=== PATIENT | male | born 1935 | race Caucasian/White ===

== ENCOUNTER 2017-01-10 14:17 | Emergency (ER) | payer OTHER ==
[~2017-01-10] VITALS: Ht 185.4 cm; Wt 83.6 kg
[~2017-01-10 14:17] MED LIST: APIX5TAB PO; BUPR100T8 PO; CEPH-376 PO; CHOL200074 PO; FINA5TAB4 PO; FURO20TA3 PO; HYDR1TAB20 PO; LISI40TA PO; LOVA20TA2 PO; MELO15TA24 PO; META800T PO; MOME13HF2 INH; MULT-224 PO; TAMS0.4C2 PO; UBID200C7 PO
[2017-01-10] MEDS ORDERED: SODIUM CHLORIDE FLUSH 10ML SYR IVF ONE (15:00)
[2017-01-10 15:19] LABS: HEMATOCRIT 46.6 % (39.2-51.8); HEMOGLOBIN 15.5 g/dL (13.7-18.0); WHITE BLOOD COUNT 11.3 x10^3/uL (3.4-10)
[2017-01-10 15:30] LABS: ASPARTATE AMINO TRANSFERASE 16 U/L (15-37); BLOOD UREA NITROGEN 33 mg/dL (7-18)
[2017-01-10 17:14] VITALS: BP 110/70
[2017-01-10 20:16] LABS: IS PT STATUS REG ER OR PRE ER? YES
== END 2017-01-10 18:43 | disposition home or self-care (01) ==
LOC: ED 18:00
DX: I48.91 Unspecified atrial fibrillation (principal); J44.1 Chronic obstructive pulmonary disease with (acute) exacerbation; R55 Syncope and collapse; I10 Essential (primary) hypertension; F17.200 Nicotine dependence, unspecified, uncomplicated
CPT/HCPCS: 36415; 71010; 80053; 83880; 84484; 85025; 85610; 93005; 99285

== ENCOUNTER → 2018-05-28 | Outpatient (CLI) | payer MEDICARE ==
[~2018-05-28] MED LIST changes: -MULT-224 PO; +MULT-642 PO
== END | disposition home or self-care (01) ==
LOC: CFH 11:47
PROVIDERS: ATTEND Internal Medicine Cardiovascular Disease
DX: J44.0 Chronic obstructive pulmonary disease with (acute) lower respiratory infection (principal); E78.5 Hyperlipidemia, unspecified; I27.20 Pulmonary hypertension, unspecified; I48.0 Paroxysmal atrial fibrillation; I12.9 Hypertensive chronic kidney disease with stage 1 through stage 4 chronic kidney disease, or unspecified chronic kidney disease; N18.9 Chronic kidney disease, unspecified; I65.29 Occlusion and stenosis of unspecified carotid artery; R73.01 Impaired fasting glucose; F17.200 Nicotine dependence, unspecified, uncomplicated
CPT/HCPCS: 71046

== ENCOUNTER → 2020-02-18 | Outpatient (CLI) | payer MEDICARE | END | disposition home or self-care (01) | LOC: CFH 10:03 | PROVIDERS: ATTEND Internal Medicine | DX: J44.9 Chronic obstructive pulmonary disease, unspecified (principal); J18.9 Pneumonia, unspecified organism | CPT/HCPCS: 71046 ==

== ENCOUNTER 2020-03-28 06:35 | Emergency (ER) | payer MEDICARE ==
[~2020-03-28] VITALS: Ht 182.9 cm; Wt 70.0 kg
[~2020-03-28 06:35] MED LIST changes: -LISI40TA PO; +LISI40TA9 PO
--- NOTE | 2020-03-28 06:45 | NUR ---
Patient BIB amb from home c/o SOB post GLF yesterday. Patient states he had the second COVID vaccine yesterday and started feeling dizzy afterward. The dizziness caused him to fall and hit his right side low ribs. Patient is on home O2 at night 3lpm for COPD. RA sat for EMS was 80%. Patient sats >95% with 4lpm O2. EMS est IV and admin 100 Fentanyl and 4 Zofran. Patient is in NAD. Respirations even and unlabored.
--- NOTE | 2020-03-28 06:58 | NUR ---
Report given to SHERLEY Mcclain. Patient care transferred.
--- NOTE | 2020-03-28 07:10 | NUR ---
assumed care of pt. report from Susana LEPE pt here fo R rib pain after a fall at home last nocs and hitting the coffee table in his home. pt reports that he ususally wears O2 but was not wearing it when he fell. pt reports that he was able to get back up on his own pt posiioning for comfort. reports that he has some relief of pain after meds en route. PO ice chips given per OK from [facility]. no family at bedside. pt updated on POC
[2020-03-28 07:18] LABS: BASOPHILS % (AUTO) 0 % (0-1); EOSINOPHILS % (AUTO) 0 % (1-7); LYMPHOCYTES % (AUTO) 5 % (22-44); MEAN CORPUSCULAR HEMOGLOBIN 30.6 pg (27.5-34.5); MEAN CORPUSCULAR HGB CONC 32.5 g/dL (33.2-36.2); MEAN PLATELET VOLUME 8.1 fL (7.4-10.4); MONOCYTES % (AUTO) 7 % (2-9); NEUTROPHILS % (AUTO) 87 % (42-75); PLATELET COUNT 147 x10^3/uL (130-400); RED BLOOD COUNT 4.15 x10^6/uL (4.38-5.82); RED CELL DISTRIBUTION WIDTH 14.6 % (9.4-14.8)
[2020-03-28 07:25] LABS: ALANINE AMINOTRANSFERASE 25 U/L (12-78); ALBUMIN 3.2 g/dL (3.4-5.0); ANION GAP 4 mmol/L (5-15); CALCIUM 8.6 mg/dL (8.5-10.1); CHLORIDE 119 mmol/L (98-107); CREATININE 1.09 mg/dL (0.7-1.3)
--- NOTE | 2020-03-28 07:27 | NUR ---
pt to RAD
[2020-03-28 07:30] LABS: ALKALINE PHOSPHATASE 65 U/L (45-117); BILIRUBIN,TOTAL 0.7 mg/dL (0.2-1.0); TOTAL PROTEIN 6.1 g/dL (6.4-8.2); TROPONIN I < 0.015 ng/mL (0.000-0.045)
[2020-03-28] MEDS ORDERED: SODIUM CHLORIDE 0.9% 1,000ML IVBOLUS ONE (07:30)
[2020-03-28 08:05] LABS: MD SCAN
--- NOTE | 2020-03-28 08:20 | NUR ---
fluid infusion continues. warm blankest given for comfort
--- NOTE | 2020-03-28 08:30 | NUR ---
report to Robin LEPE
[2020-03-28] MEDS ORDERED: ONDANSETRON 2MG/ML, 2ML ONE (09:15)
[2020-03-28] MEDS ORDERED: MORPHINE SULFATE 4 MG/ML, 1ML ONE (09:16)
--- NOTE | 2020-03-28 09:20 | NUR ---
TASK RN: MEDICATED FOR PAIN PER ORDERS
[2020-03-28] MEDS ORDERED: MORPHINE SULFATE 4 MG/ML, 1ML IVPush PRN (09:30)
[2020-03-28] MEDS ORDERED: ONDANSETRON 2MG/ML, 2ML IVPush ONE (09:30)
--- NOTE | 2020-03-28 09:45 | NUR ---
resumed care of pt. report from Robin LEPE pt has been medicated per order. resting in position of comfort awaiting SW consult IV bolus as been completed
--- NOTE | 2020-03-28 10:20 | NUR ---
MT Garza at bedside for eval
--- NOTE | 2020-03-28 10:30 | NUR ---
pt to be D/C to [facility] and F/U with home health pt aware of POC. pt sitting up on side of gurney. taking PO water and ice chips. pt has been aware that urine sample needed
--- NOTE | 2020-03-28 11:00 | NUR ---
no changes. awaiting D/C transport
[2020-03-28 11:50] VITALS: BP 117/62
[2020-03-28 12:03] LABS: MICROSCOPIC INDICATED
== END 2020-03-28 11:53 | disposition home or self-care (01) ==
LOC: ED 09:55
DX: S20.211A Contusion of right front wall of thorax, initial encounter (principal); R07.89 Other chest pain; I48.91 Unspecified atrial fibrillation; Z87.891 Personal history of nicotine dependence; W18.30XA Fall on same level, unspecified, initial encounter; Y93.89 Activity, other specified; Y92.89 Other specified places as the place of occurrence of the external cause; Y99.8 Other external cause status
CPT/HCPCS: 36415; 71250; 80053; 81001; 84484; 85025; 87086; 93005; 96374; 96375; 99285; J2270; J2405; J7030